=== PATIENT | female | born 1975 | race Caucasian/White ===

== ENCOUNTER 2017-12-12 01:21 | Emergency (ER) | payer MEDICARE, MEDICAID ==
[~2017-12-12] VITALS: Ht 165.1 cm; Wt 91.5 kg
[~2017-12-12 01:21] MED LIST: PANT40TA4 PO
[2017-12-12 01:28] VITALS: BP 168/101
[2017-12-12] MEDS ORDERED: CIPR10DR EACH EAR (02:04)
[2017-12-12] MEDS ORDERED: Cipro HC otic suspension 10ML bottle EACH EAR ONE (02:05)
== END 2017-12-12 02:20 | disposition home or self-care (01) ==
LOC: ER 01:22
DX: H66.93 Otitis media, unspecified, bilateral (principal); Z88.1 Allergy status to other antibiotic agents
CPT/HCPCS: 99283

== ENCOUNTER 2018-07-24 12:58 | Emergency (ER) | payer MEDICARE, MEDICAID ==
[~2018-07-24] VITALS: Ht 165.1 cm; Wt 90.0 kg
[2018-07-24 13:12] VITALS: BP 148/91
[2018-07-24] MEDS ORDERED: dexamethasone sod phosphate 10mg/ml inj PO STA (14:28)
== END 2018-07-24 15:18 | disposition home or self-care (01) ==
LOC: ER 12:58
DX: J02.9 Acute pharyngitis, unspecified (principal); R06.02 Shortness of breath; Z88.1 Allergy status to other antibiotic agents
CPT/HCPCS: 99282; J1100

== ENCOUNTER 2019-03-19 19:56 | Emergency (ER) | payer MEDICARE, MEDICAID ==
[~2019-03-19] VITALS: Ht 165.1 cm; Wt 80.6 kg
[2019-03-19] MEDS ORDERED: ondansetron 4mg rapidly disintigrating tab PO ONE (20:05)
--- NOTE | 2019-03-19 21:49 | NUR ---
DR SOLIS AT BEDSIDE WITH PT
[2019-03-19 22:39] VITALS: BP 144/101
[2019-03-19] MEDS ORDERED: SUMA25TA35 PO (23:42)
[2019-03-19] MEDS ORDERED: PROC5TAB56 PO (23:42)
[2019-03-19] MEDS ORDERED: ONDA4TAB6 PO (23:42)
== END 2019-03-19 23:58 | disposition home or self-care (01) ==
LOC: ER 19:57
DX: H53.143 Visual discomfort, bilateral (principal); H57.13 Ocular pain, bilateral; R11.2 Nausea with vomiting, unspecified; Z79.899 Other long term (current) drug therapy; Z88.1 Allergy status to other antibiotic agents
CPT/HCPCS: 70450; 70480; 99284

== ENCOUNTER 2020-02-25 12:32 | Outpatient (CLI) | payer MEDICARE, MEDICAID ==
[~2020-02-25 12:32] MED LIST changes: +ONDA4TAB6 PO; +PROC5TAB56 PO; +SUMA25TA35 PO
== END 2020-02-25 23:59 | disposition home or self-care (01) ==
LOC: CAR 12:32
DX: Z79.899 Other long term (current) drug therapy (principal)
CPT/HCPCS: 93005

== ENCOUNTER → 2024-01-09 | Outpatient (CLI) | payer MEDICARE, MEDICAID ==
[~2024-01-09] MED LIST changes: -PANT40TA4 PO; +PANT40TA54 PO
== END | disposition home or self-care (01) ==
LOC: RAD 16:17
PROVIDERS: ATTEND Family Medicine
DX: M25.522 Pain in left elbow (principal)
CPT/HCPCS: 73080

== ENCOUNTER 2024-02-23 12:26 | Emergency (ER) | payer MEDICARE, MEDICAID ==
[~2024-02-23] VITALS: Ht 170.2 cm; Wt 110.0 kg
--- NOTE | 2024-02-23 15:34 | NUR ---
iphone used to interpret due to lack of interpreter
--- NOTE | 2024-02-23 15:40 | NUR ---
patient describes pain as "migrating from middle of back to front of belly"
[2024-02-23 16:23] LABS: BASOPHILS # (AUTO) 0.1 X10'3 (0-0.2); BASOPHILS % (AUTO) 0.8 % (0-1); EOSINOPHILS # (AUTO) 0.2 X10'3 (0-0.9); EOSINOPHILS % (AUTO) 2.6 % (0-6); HEMATOCRIT 42.1 % (35.0-45.0); HEMOGLOBIN 14.1 g/dl (12.0-16.0); LYMPHOCYTES # (AUTO) 1.5 X10'3 (1.1-4.8); LYMPHOCYTES % (AUTO) 17.2 % (21-51); MEAN CORPUSCULAR HEMOGLOBIN 27.5 PG (27.0-31.0); MEAN CORPUSCULAR HGB CONC 33.5 g/dL (33.0-36.5); MEAN CORPUSCULAR VOLUME 82.1 FL (78-98); MEAN PLATELET VOLUME 8.1 FL (7.4-10.4); MONOCYTES # (AUTO) 0.8 X10'3 (0-0.9); MONOCYTES % (AUTO) 9.6 % (2-12); NEUTROPHILS # (AUTO) 6.1 X10'3 (1.8-7.7); NEUTROPHILS % (AUTO) 69.8 % (42-75); PLATELET COUNT 291 X10'3 (140-440); RED BLOOD COUNT 5.13 X10'6 (4.20-5.60); WHITE BLOOD COUNT 8.7 X10'3 (4.5-11.0)
[2024-02-23 16:29] LABS: ALBUMIN 3.2 G/DL (3.4-5.0); ANION GAP 6 (8-16); BLOOD UREA NITROGEN 10 MG/DL (7-18); BUN/CREATININE RATIO 11.1 (10.0-20.0); CALCIUM 9.7 MG/DL (8.5-10.1); CHLORIDE 99 MMOL/L (99-107); GLUCOSE 112 MG/DL (70-104); SODIUM 135 MMOL/L (135-145); TOTAL CARBON DIOXIDE 29.6 MMOL/L (24-32); eCRCL 76 ML/MIN; eGFR 67 ML/MIN
[2024-02-23 16:35] LABS: POTASSIUM 4.1 MMOL/L (3.5-5.1)
--- NOTE | 2024-02-23 16:35 | NUR ---
PT CAME OUT AND VERBALLY ASKED IF SHE NEEDED TO GIVE A URINE SAMPLE. THESE WORDS WERE SPOKE CLEARLY, PT ALSO SIGNED WHILE TALKING.
[2024-02-23 16:51] LABS: BILIRUBIN,URINE NEGATIVE (Neg); CLARITY,URINE CLEAR (Clear); COLOR,URINE YELLOW (Yellow); GLUCOSE, URINE NEGATIVE (Neg); KETONES,URINE NEGATIVE (Neg); LEUKOCYTE ESTERASE ,URINE NEGATIVE (Neg); NITRITES, URINE NEGATIVE (Neg); OCCULT BLOOD,URINE TRACE-INTACT (Neg); PROTEIN,URINE NEGATIVE (Neg)
--- NOTE | 2024-02-23 16:54 | NUR ---
Called counts include [phone] beds at the [facility] [employer] [facility] at , employee states she would send me a form to fill out and fax back to [email or web address] and then she would reach out to local interpreters to see if any were available.
[2024-02-23 17:00] LABS: UA COLLECTION TYPE CLN CATCH MIDSTREAM
[2024-02-23 17:02] LABS: BACTERIA,URINE FEW /HPF (Neg); SQUAMOUS EPITHELIAL CELL,UR NONE SEEN /LPF (FEW); WBC,URINE 0-4 /HPF (0-4)
--- NOTE | 2024-02-23 17:10 | NUR ---
PT CAME OUT OF ROOM AND VERBALLY ASKED "CAN I HAVE SOMETHING TO EAT".
--- NOTE | 2024-02-23 17:29 | NUR ---
PT SAYS SHE DOES NOT WANT PAIN MEDICATIONS BUT SHE WANTS TO FIND OUT THE PROBLEM.
[2024-02-23] MEDS: HYDROcodone/acetaminophen 5mg/325mg tablet PO ONE (17:35)
[2024-02-23] MEDS ORDERED: iohexol 300mg/ml 100ml inj. ONE (17:59)
[2024-02-23] MEDS: acetaminophen 325mg tablet PO ONE (18:16)
--- NOTE | 2024-02-23 18:50 | NUR ---
Request form for communication services faxed to [facility]. Fax number . Awaiting response.
[2024-02-23 19:47] LABS: ALANINE AMINOTRANSFERASE 7 U/L (12-78); ALBUMIN/GLOBULIN RATIO 0.7 (1.1-1.5); ALKALINE PHOSPHATASE 122 IU/L (46-116); AMYLASE 72 U/L (25-115); ASPARTATE AMINO TRANSFERASE 15 U/L (10-37); BILIRUBIN,TOTAL 0.5 MG/DL (0.1-1.0); LIPASE 154 U/L (16-77); TOTAL PROTEIN 7.6 G/DL (6.4-8.2)
[2024-02-23 19:49] LABS: BILIRUBIN,DIRECT 0.1 MG/DL (0-0.3)
[2024-02-23] MEDS ORDERED: PER5325T PO (19:51)
[2024-02-23] MEDS ORDERED: ONDA-243 PO (19:51)
[2024-02-23 20:10] VITALS: BP 148/76; PULSE 75; RESP 18; TEMP 98.2; O2SAT 98
== END 2024-02-23 20:10 | disposition home or self-care (01) ==
LOC: ER 12:28
DX: Q45.3 Other congenital malformations of pancreas and pancreatic duct (principal); Z88.8 Allergy status to other drugs, medicaments and biological substances; Z88.1 Allergy status to other antibiotic agents; Z91.040 Latex allergy status; Z79.899 Other long term (current) drug therapy; Z72.89 Other problems related to lifestyle
CPT/HCPCS: 36415; 71260; 74177; 80048; 80076; 81001; 82150; 83690; 85025; 99285; Q9967